=== PATIENT | female | born 1985 | race Hispanic/Latino ===

== ENCOUNTER 2022-02-01 23:18 | Emergency (ER) | payer OTHER ==
[2022-02-02 00:25] VITALS: BP 112/58
[2022-02-02] MEDS ORDERED: IBUPROFEN 600 MG TABLET PO ONE (00:30)
[2022-02-02] MEDS ORDERED: CYCL10TA16 PO (00:38)
[2022-02-02] MEDS ORDERED: IBUP-2070 PO (00:38)
== END 2022-02-02 01:07 | disposition home or self-care (01) ==
LOC: EDH 23:18
DX: S13.4XXA Sprain of ligaments of cervical spine, initial encounter (principal); Z79.1 Long term (current) use of non-steroidal anti-inflammatories (NSAID); V49.3XXA Car occupant (driver) (passenger) injured in unspecified nontraffic accident, initial encounter; Y93.89 Activity, other specified; Y92.89 Other specified places as the place of occurrence of the external cause; Y99.8 Other external cause status
CPT/HCPCS: 70450; 72125

== ENCOUNTER 2022-08-27 04:33 | Emergency (ER) | payer BC ==
[~2022-08-27] VITALS: Ht 162.6 cm; Wt 80.7 kg
[~2022-08-27 04:33] MED LIST: CYCL10TA16 PO; IBUP-2070 PO
[2022-08-27 05:11] LABS: APPEARANCE,URINE CLEAR (CLEAR); BILIRUBIN,URINE NEGATIVE (NEGATIVE); COLOR,URINE COLORLESS (YELLOW); GLUCOSE, URINE (UA) NEGATIVE (NEGATIVE); KETONES,URINE NEGATIVE (NEGATIVE); LEUKOCYTE ESTERASE ,URINE 25 Leu/uL (NEGATIVE); NITRATE,URINE NEGATIVE (NEGATIVE); OCCULT BLOOD,URINE NEGATIVE (NEGATIVE); PH,URINE 5.5 (5.0-8.0); PROTEIN,URINE NEGATIVE (NEGATIVE); UROBILINOGEN,URINE 0.2 mg/dL (0.2-1.0)
[2022-08-27 05:12] LABS: BASOPHILS % (AUTO) 0.5 % (0.0-5.0); LYMPHOCYTES % (AUTO) 21.9 % (21.0-51.0); MEAN CORPUSCULAR HEMOGLOBIN 24.1 pg (27.0-33.0); MEAN CORPUSCULAR HGB CONC 31.1 g/dL (32.0-36.0); MEAN CORPUSCULAR VOLUME 77.6 fL (79-99); NEUTROPHILS % (AUTO) 70.3 % (40.0-77.0); PLATELET COUNT (AUTO) 254 K/uL (130-400); RED BLOOD CELL COUNT(AUTO) 4.77 MIL/uL (4.00-5.50); RED CELL DISTRIBUTION WIDTH 15.7 % (11.0-15.5); WHITE BLOOD COUNT (AUTO) 12.8 K/uL (4.8-10.8)
[2022-08-27 05:14] LABS: HCG,QUALITATIVE URINE NEGATIVE (NEGATIVE)
[2022-08-27 05:20] LABS: CREATININE 0.7 mg/dL (0.5-1.5); POTASSIUM 3.8 mmol/L (3.5-5.1)
[2022-08-27 05:21] LABS: MUCUS,URINE RARE LPF (None Seen); RBC,URINE 0-1 /HPF (0-1); SQUAMOUS EPITHELIAL CELL,UR RARE /HPF (0-2)
[2022-08-27 05:24] LABS: ALBUMIN 3.6 g/dL (3.5-5.0); TOTAL PROTEIN, SERUM 7.2 g/dL (6.0-8.3)
[2022-08-27] MEDS ORDERED: KETOROLAC 30MG VIAL (30MG/ML) IVP ONE (08:30)
[2022-08-27] MEDS ORDERED: MACR100 PO (12:13)
[2022-08-27] MEDS ORDERED: IBUP-2070 PO (12:13)
[2022-08-27 12:33] VITALS: BP 110/56
== END 2022-08-27 12:46 | disposition home or self-care (01) ==
LOC: EDH 04:33
DX: N83.201 Unspecified ovarian cyst, right side (principal); N85.9 Noninflammatory disorder of uterus, unspecified; N39.0 Urinary tract infection, site not specified; Z98.890 Other specified postprocedural states
CPT/HCPCS: 99285; 74177; 96374; 76830; 80053; 83690; 85025; 83605; 81001; 81025; 36415; J1885